=== PATIENT | male | born 1950 | race Caucasian/White ===

== ENCOUNTER → 2016-03-28 | Outpatient (CLI) | payer MEDICARE | LOC: GMAH 10:49 | PROVIDERS: ATTEND Family Medicine | DX: E78.2 Mixed hyperlipidemia (principal); Z12.5 Encounter for screening for malignant neoplasm of prostate | CPT/HCPCS: 84443; 84550; G0103 ==

== ENCOUNTER → 2017-07-16 | Outpatient (CLI) | payer MEDICARE | LOC: GMAH 10:51 | PROVIDERS: ATTEND Family Medicine | DX: E78.2 Mixed hyperlipidemia (principal); Z12.5 Encounter for screening for malignant neoplasm of prostate | CPT/HCPCS: 84443; 84550; G0103 ==

== ENCOUNTER → 2018-07-29 | Outpatient (CLI) | payer MEDICARE | LOC: GMAH 10:29 | PROVIDERS: ATTEND Family Medicine | DX: I10 Essential (primary) hypertension (principal); Z12.5 Encounter for screening for malignant neoplasm of prostate | CPT/HCPCS: 84443; 84550; G0103 ==

== ENCOUNTER 2019-04-24 23:57 | Emergency (ER) | payer MEDICARE ==
[2019-04-25] MEDS ORDERED: ONDANSETRON INJ 4 MG/2 ML VIAL IV ONE ×2 (01:01→03:04)
[2019-04-25] MEDS ORDERED: SODIUM CHLORIDE 0.9% 500ML 500 ML IVS ONE (01:01)
[2019-04-25] MEDS ORDERED: MORPHINE SULFATE INJ 10 MG/ML VIAL IV ONE ×2 (01:01→02:37)
--- NOTE | 2019-04-25 01:08 | ED.PDOC ---
History of Present Illness - General Chief Complaint: Lower Extremity Injury Stated Complaint: leg pain radiating from hip to ankle Time Seen by Provider: 04/25/19 01:01 Source: patient - History of Present Illness Initial Comments: 69 yo male with PMH of HTN, CAD s/p CABG (2017) who presents with cc of LLE pain. Denies any acute injury or trauma. Began suddenly while walking approx 3 hours ago. Reports constant pain throughout the entire left leg from the left hip down to the lower calf, 9/10 severity, unable to describe, "just hurts", took hydrocodone shortly after onset with little relief reported, seems worse with sitting up/bending, better with lying flat, cannot think of any other exacerbants. No hx of similar pain in the past. Denies any leg swelling, redness, weakness, numbness. Has been having some worsening left low back pain recently as well. Denies any urinary sx's. Allergies/Adverse Reactions: Allergies Iodine Allergy (Verified 02/01/15 10:26) Home Medications: Ambulatory Orders Albuterol Inhaler [Ventolin Hfa Inhaler] 1 puff INH DAILY 02/01/15 Albuterol Sulfate Nebs [Proventil Nebs] 2.5 mg INH DAILY 02/01/15 Lisinopril [Zestril] 30 mg PO DAILY 02/01/15 Montelukast [Singulair] 10 mg PO DAILY 02/01/15 Simvastatin [Zocor] 40 mg PO DAILY 02/01/15 Budesonide-Formoterol Fumarate [Symbicort] 1 aer IN BID 09/11/15 Esomeprazole Magnesium [Nexium] 40 mg PO DAILY 09/11/15 Ipratropium [place] (Nasal) [Ipratropium [place]] 0.03 % NA PRN 09/11/15 Gabapentin 300 mg PO Q8H PRN 30 Days #30 cap 04/25/19 Prednisone 60 mg PO DAILY 5 Days #15 tab 04/25/19 Review of Systems - Review of Systems Review of Systems: 04/25/19 01:07 as per HPI All other Systems: Reviewed and Negative Past Medical History (General) - Patient Medical History Hx Seizures: No Hx Stroke: No Hx Dementia: No Hx Asthma: Yes Hx of COPD: Yes Hx Cardiac Disorders: No Hx Congestive Heart Failure: No Hx Pacemaker: No Hx Hypertension: Yes Hx Thyroid Disease: No Hx Diabetes: No Hx Gastroesophageal Reflux: Yes Hx Renal Disease: No Hx Cancer: No Hx of HIV: No Hx Hepatitis C: No Hx MRSA: No Surgical History: coronary bypass surgery - Vaccination History Hx Tetanus, Diphtheria Vaccination: No Hx Influenza Vaccination: Yes Hx Pneumococcal Vaccination: Yes Immunizations Up to Date: Yes - Social History Hx Tobacco Use: No Hx Chewing Tobacco Use: No Hx Alcohol Use: No Hx Substance Use: No Hx Substance Use Treatment: No Hx Depression: No Feels Threatened In Home Enviroment: No Feels Threatened In a Relationship: No Hx Physical Abuse: No Hx Emotional Abuse: No Hx Suspected Abuse: No - Activities of Daily Living Hospice Agency (if applicable):: None - Female History Patient is a Female of Child Bearing Age (10 -59 yrs old): No Patient : No - Triage Comment ED Triage Comment: pain began last night at 2100, while at home Family Medical History - Family History Mother Family History: Unknown Physical Exam - Physical Exam General Appearance: Alert, Restless Eye Exam: bilateral normal Ears, Nose, Throat: hearing grossly normal, normal ENT inspection, normal pharynx Neck: non-tender, full range of motion, supple, normal inspection Respiratory: lungs clear, normal breath sounds, no respiratory distress Cardiovascular/Chest: normal peripheral pulses, regular rate, rhythm, no edema, no gallop, no JVD, no murmur Peripheral Pulses: radial,right: 2+, radial,left: 2+, femoral,right: 2+, femoral,left: 2+, dorsalis pedis,right: 2+, dorsalis pedis,left: 2+, posterior tibialis,right: 2+, posterior tibialis,left: 2+ Gastrointestinal/Abdominal: non tender, soft, no organomegaly Back Exam: normal inspection, no CVA tenderness, no vertebral tenderness, other - moderate left lower paralumbar muscle ttp, slightly +SLR on L side Extremity: normal range of motion, non-tender, normal inspection, no pedal edema, no calf tenderness, normal capillary refill, pelvis stable Neurologic: heel cover splitter II-XII nml as tested, no motor/sensory deficits, alert, normal mood/affect, oriented x 3 Skin Exam: normal color, warm/dry Progress - Progress Progress: 04/25/19 01:08 Acute LLE pain -nontraumatic in nature. Odd presentation. Etiology uncertain. Question sciatica most likely. Consider also peripheral neuropathy, DVT, leg cramps, other. No red flags to suggest Cauda equina syndrome or other emergent etiologies. -pulses, strength, sensation intact throughout. Slightly positive SLR on Left side -obtain XR L hip, L femur, L tib/fib -CBC, CMP, d dimer, UA -morphine 8 mg IV for pain, Zofran 4 mg, NS 04/25/19 03:38 -Labs largely unremarkable, d-dimer negative -XR imaging of Left LE shows no acute processes per my read -CT L-spine reveals evidence of lumbar neural foraminal stenosis, most prominent on left side L3-S3 per radiology. I suspect this may be contributing to his left low back pain and pains in his LLE, which appear most c/w sciatica-type pain. -discussed findings at length with patient as well as likely diagnosis of Left- sided sciatica. His pain is now markedly improved in the ED with another morphine 6 mg IV along with gabapentin 300 mg PO and Decadron. He is able to ambulate independently around the ED with minimal pain. -dc to home in fair condition. Advised close PCP f/u in next 2-5 days. Will send with Rx's of PRN gabapentin, PRN Tylenol #4, and prednisone 60 mg daily x5 days. Return warnings discussed at length. Dayne Dominguez MD Billing #[id number] Laboratory Results - last 24 hr 04/25/19 04/25/19 04/25/19 01:03 01:03 01:03 WBC 10.4 RBC 4.96 Hgb 14.1 Hct 43.2 MCV 87.1 MCH 28.5 MCHC 32.7 L RDW 14.2 Plt Count 257 MPV 9.4 Absolute Neuts (auto) 7.20 H Absolute Lymphs (auto) 2.00 Absolute Monos (auto) 1.10 H Absolute Eos (auto) 0.10 Absolute Basos (auto) 0.10 Neutrophils % 68.9 Lymphocytes % 18.9 L Monocytes % 10.4 H Eosinophils % 1.3 Basophils % 0.5 D-Dimer, Quantitative < 100 L Sodium 140 Potassium 4.0 Chloride 105 Carbon Dioxide 26 Anion Gap 13.0 BUN 20 H Creatinine 0.84 BUN/Creatinine Ratio 23.8 H Random Glucose 115 H Serum Osmolality 282.9 Calcium 9.5 Total Bilirubin 1.1 H AST 28 ALT 23 Alkaline Phosphatase 65 Serum Total Protein 7.7 Albumin 4.5 Globulin 3.2 Albumin/Globulin Ratio 1.4 Urine Color Urine Appearance Urine pH Ur Specific [place] Urine Protein Urine Glucose (UA) Urine Ketones Urine Blood Urine Nitrite Urine Bilirubin Urine Urobilinogen Ur Leukocyte Esterase Urine RBC Urine WBC Ur Epithelial Cells Urine Bacteria 04/25/19 02:25 WBC RBC Hgb Hct MCV MCH MCHC RDW Plt Count MPV Absolute Neuts (auto) Absolute Lymphs (auto) Absolute Monos (auto) Absolute Eos (auto) Absolute Basos (auto) Neutrophils % Lymphocytes % Monocytes % Eosinophils % Basophils % D-Dimer, Quantitative Sodium Potassium Chloride Carbon Dioxide Anion Gap BUN Creatinine BUN/Creatinine Ratio Random Glucose Serum Osmolality Calcium Total Bilirubin AST ALT Alkaline Phosphatase Serum Total Protein Albumin Globulin Albumin/Globulin Ratio Urine Color Yellow Urine Appearance Clear Urine pH 5.0 Ur Specific [place] 1.025 Urine Protein Negative Urine Glucose (UA) Negative Urine Ketones Negative Urine Blood Negative Urine Nitrite Negative Urine Bilirubin Negative Urine Urobilinogen 0.2 Ur Leukocyte Esterase Negative Urine RBC 0 Urine WBC 0 Ur Epithelial Cells 0 Urine Bacteria 0 Departure - Departure Clinical Impression: Sciatica associated with disorder of lumbar spine, Neural foraminal stenosis of lumbosacral spine Time of Disposition: 03:27 Disposition: Discharge to Home or Self Care Condition: Fair Departure Forms: ED Discharge - Pt. Copy, Patient Portal Self Enrollment Instructions: DI for Leg Pain, Sciatica (DC) Diet: resume usual diet Activity: increase activity as tolerated, no lifting Referrals: Alan Atkins MD [Primary Care Provider] - 1-2 Weeks Prescriptions: Gabapentin 300 mg PO Q8H PRN 30 Days #30 cap PRN Reason: Pain Prednisone 60 mg PO DAILY 5 Days #15 tab Home Medications: Ambulatory Orders Albuterol Inhaler [Ventolin Hfa Inhaler] 1 puff INH DAILY 02/01/15 Albuterol Sulfate Nebs [Proventil Nebs] 2.5 mg INH DAILY 02/01/15 Lisinopril [Zestril] 30 mg PO DAILY 02/01/15 Montelukast [Singulair] 10 mg PO DAILY 02/01/15 Simvastatin [Zocor] 40 mg PO DAILY 02/01/15 Budesonide-Formoterol Fumarate [Symbicort] 1 aer IN BID 09/11/15 Esomeprazole Magnesium [Nexium] 40 mg PO DAILY 09/11/15 Ipratropium [place] (Nasal) [Ipratropium [place]] 0.03 % NA PRN 09/11/15 Gabapentin 300 mg PO Q8H PRN 30 Days #30 cap 04/25/19 Prednisone 60 mg PO DAILY 5 Days #15 tab 04/25/19 Additional Instructions: Continue taking medications as directed for pain control at home. Return if symptoms worsen or if pain is poorly controlled at home or if concerning symptoms develop such as weakness, numbness, urinary incontinence or retention, numbness in the groin region, color change or coldness of one leg or foot, etc... Follow up with your primary care doctor in next 2-5 days is recommended. You may benefit from further outpatient testing such as Electromyogram of the left leg, MRI of the L-spine, etc...
--- NOTE | 2019-04-25 02:09 | CT ---
EXAM: CT Lumbar Spine Without Intravenous Contrast CLINICAL HISTORY: The patient is 69 years old and is Male; acute low back pain with sciatica TECHNIQUE: Axial computed tomography images of the lumbar spine without intravenous contrast. Sagittal and coronal reformatted images were created and reviewed. This CT exam was performed using one or more of the following dose reduction techniques: automated exposure control, adjustment of the mA and/or kV according to patient size, and/or use of iterative reconstruction technique. COMPARISON: No relevant prior studies available. FINDINGS: VERTEBRAE: The vertebral body heights and alignment are maintained. DISCS/SPINAL CANAL/NEURAL FORAMINA: Intervertebral disc space narrowing and osteophyte formation at L5-S1 is present. Mild disc bulges are noted of the lumbar spine, most prominent at L4-L5. Neural foraminal narrowing is noted most prominent on the left at multiple levels, specifically L3-S1. SOFT TISSUES: The soft tissues are normal. VASCULATURE: Atherosclerosis of the vasculature is present. IMPRESSION: Spondylosis of the lumbar spine as described. Electronically signed by: Kena Santos MD 04/25/2019 2:08 AM [facility]
--- NOTE | 2019-04-25 02:10 | RAD ---
EXAM: XR Left Femur, 2 Views CLINICAL HISTORY: The patient is 69 years old and is Male; acute nontraumatic LLE pain TECHNIQUE: Frontal and lateral views of the left femur. COMPARISON: No relevant prior studies available. FINDINGS: BONES/JOINTS: Unremarkable. No acute fracture. No dislocation. SOFT TISSUES: Unremarkable. IMPRESSION: Negative left femur radiographs. Electronically signed by: Kena Santos MD 04/25/2019 2:09 AM [facility]
--- NOTE | 2019-04-25 02:10 | RAD ---
EXAM: XR Left Hip With Pelvis When Performed, 2 or 3 Views CLINICAL HISTORY: The patient is 69 years old and is Male; acute nontraumatic LLE pain TECHNIQUE: Two or three views of the left hip with pelvis when performed. COMPARISON: No relevant prior studies available. FINDINGS: BONES/JOINTS: The femoral head is well located. The SI joints and pubic symphysis are intact. No acute fracture. No dislocation. SOFT TISSUES: Unremarkable. IMPRESSION: No acute findings in the left hip. Electronically signed by: Kena Santos MD 04/25/2019 2:09 AM [facility]
--- NOTE | 2019-04-25 02:11 | RAD ---
EXAM: XR Left Tibia and Fibula, 2 Views CLINICAL HISTORY: The patient is 69 years old and is Male; acute nontraumatic LLE pain TECHNIQUE: Frontal and lateral views of the left tibia and fibula. COMPARISON: No relevant prior studies available. FINDINGS: BONES/JOINTS: Evidence of prior ORIF of the a distal fibular fracture with plate and screw fixation is noted. The hardware is engaged. Healed distal tibial fracture is present with associated abundant callus formation. There is no acute fracture. No dislocation. SOFT TISSUES: Unremarkable. No radiopaque foreign body. IMPRESSION: No acute findings in the left tibia and fibula or surrounding soft tissues. Electronically signed by: Kena Santos MD 04/25/2019 2:10 AM [employer]
[2019-04-25] MEDS ORDERED: GABAPENTIN 100 MG CAP PO ONE (02:37)
[2019-04-25] MEDS ORDERED: DEXAMETHASONE INJ 4 MG/ML VIAL IV ONE (02:37)
[2019-04-25] MEDS ORDERED: ONDANSETRON INJ 4 MG/2 ML VIAL ONE (03:03)
[2019-04-25] MEDS ORDERED: ACETAMINOPHEN W/COD #3 TAB (ER Disp) PO ONE (03:33)
[2019-04-25] MEDS ORDERED: ONDANSETRON ODT (ER DISP) 8 MG TAB PO ONE (03:33)
[2019-04-25 04:17] VITALS: BP 150/89; TEMP 97.4; O2SAT 95
== END 2019-04-25 03:50 | disposition home or self-care (01) ==
LOC: ER 23:57
DX: M54.42 Lumbago with sciatica, left side (principal); M48.07 Spinal stenosis, lumbosacral region; I10 Essential (primary) hypertension; I25.10 Atherosclerotic heart disease of native coronary artery without angina pectoris; J44.9 Chronic obstructive pulmonary disease, unspecified; K21.9 Gastro-esophageal reflux disease without esophagitis; Z95.1 Presence of aortocoronary bypass graft; Z79.899 Other long term (current) drug therapy; Z91.041 Radiographic dye allergy status
CPT/HCPCS: 72131; 73502; 73551; 73590; 80053; 81001; 85025; 85379; J1100; J2270; J2405; J7040

== ENCOUNTER → 2019-05-07 | Outpatient (CLI) | payer MEDICARE ==
--- NOTE | 2019-05-08 14:21 | MRI ---
EXAM DESCRIPTION: Lumbar Spine w/o Contrast : Magnetic Resonance Imaging. CLINICAL HISTORY: SCIATICA UNSPEC SIDE COMPARISON: CT scan lumbar spine, hip and left lower extremity radiographs April 25. Acute low back pain and left lower extremity pain on this date. TECHNIQUE: Multiplanar, multiple standard sequences, non contrast MRI, lumbar spine. FINDINGS: L5-S1: The disc is well visualized on axial T2 series 501, image 3. Moderate disc space loss with disc desiccation. Degenerative hypertrophy of the posterior flavum ligaments and facet joints (posterior elements) with a small cyst abutting the inferior right facet joint but not in the spinal canal. Tiny posterior midline bulge. Moderate endplate reactive changes of the midline encroaching on the foramen with borderline stenosis. Abutting the left L5 nerve. Moderate right foraminal narrowing. Trace retrolisthesis. Canal patent. Circumscribed hyperintense T1 and T2 hemangioma in the L5 vertebral body. L4-L5: Disc desiccation with posterior disc space loss. Posterior broad-based bulge 4 mm. Degenerative hypertrophy of the posterior elements more to the left of midline. Disc protrusion below the right posterior margin effacing the right subarticular recess and abutting the descending right L5 nerve. Disc bulge into the bilateral foramina with borderline right foraminal stenosis and left foraminal stenosis from focal disc bulge or protrusion into the foramen. L3-L4: Disc desiccation and minimal disc space loss with minimal anterior bulging. Partial left laminectomy. Thickened tissue extending from the disc space left of midline inferiorly effacing the left subarticular recess and abutting the descending left L4 nerve. Moderate bilateral foraminal narrowing. Mild bilateral degenerative hypertrophy of the posterior elements. L2-L3: Disc desiccation with anterior bulging. Disc space maintained. Small hyperintense T2 annular fissure left paramedian posterior disc margin. No significant disc bulge. Bilateral mild to moderate foraminal narrowing. L1-L2: Minimal disc desiccation with disc space preserved. Posterior elements are unremarkable. Canal and foramina are patent. T12-L1: Normal signal in the disc with disc space preserved. No bulging. Posterior elements unremarkable. Canal and foramina are patent. Conus terminates at this level. No scoliosis. Paravertebral soft tissues unremarkable.. Distal cord normal signal and caliber. Some inhomogeneity of the marrow signal in the remaining vertebral bodies and the posterior elements. Vertebral bodies are not compressed at any level. IMPRESSION: 1. Multiple levels of desiccated and bulging discs. Multiple levels of hypertrophic posterior flavum ligaments and facet joints. Minimal spondylosis. 2. Moderate spondylosis L5-S1 left side endplates with disc spur complex causing left foraminal stenosis and possible impingement of the exiting left L5 nerve. 3. L4-L5 disc protrusion right paracentral encroaching on the right subarticular recess in the descending right L5 nerve. Also bilateral foraminal stenosis. Correlate for bilateral L4 radiculopathy. 4. Prior left paracentral partial laminectomy L3-L4 which could indicate previous discectomy. Apparently disc remnant extruded into the left subarticular recess and possible compromise left L4 nerve. Electronically signed by: Francois Vega MD 05/08/2019 2:19 PM [facility]
== END ==
LOC: MRI 08:00
PROVIDERS: ATTEND Family Medicine
DX: M54.30 Sciatica, unspecified side (principal); M51.36 Other intervertebral disc degeneration, lumbar region; M51.26 Other intervertebral disc displacement, lumbar region; M47.896 Other spondylosis, lumbar region; M51.86 Other intervertebral disc disorders, lumbar region; M47.897 Other spondylosis, lumbosacral region; M48.061 Spinal stenosis, lumbar region without neurogenic claudication; M24.28 Disorder of ligament, vertebrae; M46.96 Unspecified inflammatory spondylopathy, lumbar region; M25.78 Osteophyte, vertebrae; Z98.890 Other specified postprocedural states

== ENCOUNTER → 2019-07-07 | Outpatient (CLI) | payer MEDICARE | LOC: GMA MATASK 16:13 | PROVIDERS: ATTEND Family Medicine | DX: R06.02 Shortness of breath (principal); I10 Essential (primary) hypertension ==

== ENCOUNTER → 2019-11-02 | Outpatient (CLI) | payer MEDICARE | LOC: GMA MATASK 14:10 | PROVIDERS: ATTEND Family Medicine | DX: Z12.5 Encounter for screening for malignant neoplasm of prostate (principal); I10 Essential (primary) hypertension | CPT/HCPCS: 84443; 84550; G0103 ==

== ENCOUNTER 2020-02-03 12:31 | Emergency (ER) | payer MEDICARE ==
[2020-02-03] MEDS ORDERED: LIDOCAINE 1% W/ EPINEPHRINE 20 ML VIAL INJ ONE (12:55)
[2020-02-03 13:02] VITALS: O2SAT 96
--- NOTE | 2020-02-03 13:05 | RAD ---
EXAM DESCRIPTION: Forearm,Left CLINICAL HISTORY: skillsaw injury COMPARISON: None. TECHNIQUE: 2 views left FINDINGS: A soft tissue injury is observed about the wrists. No bone or joint abnormality is detected. No radiopaque foreign body is observed in the soft tissues. IMPRESSION: A soft tissue injury is observed about the wrist. No fracture or foreign body is seen. Electronically signed by: Prateek Girard MD 02/03/2020 1:04 PM [facility]
[2020-02-03] MEDS ORDERED: TETANUS,DIPHTHERIA,PERTUSSIS 1 EA SYG IM ONE (13:26)
[2020-02-03] MEDS ORDERED: SULFA/TRIMETH 800/160 (DS) TAB 1 EA TAB PO ONE (13:26)
[2020-02-03] MEDS ORDERED: SODIUM CHLORIDE 0.9% 1000ML 1,000 ML IVS ONE (13:26)
[2020-02-03] MEDS ORDERED: SODIUM CHLORIDE 0.9% 1000ML 1,000 ML ONE (13:26)
--- NOTE | 2020-02-03 13:37 | ED.PDOC ---
History of Present Illness - General Chief Complaint: Laceration Stated Complaint: laceration left wrist Time Seen by Provider: 02/03/20 12:40 Source: patient Exam Limitations: no limitations - History of Present Illness Initial Comments: The patient is a 69-year-old male who was working outside in his yard when he accidentally cut the left forearm to the lateral dorsal ulnar area. There is a 1-1/4 inch laceration in the area that does extend down almost to the bone. He does not appear to have lost any function. No significant sensation loss in the hand. No strength loss. The cut does not go into the bone. No other injuries. The did occur just prior to arrival. Patient's blood pressure and heart rate are low but he has had syncopal episodes with previous injuries and did take some metoprolol just with correct arrival. He is pleasant and cooperative. Blood loss prior to arrival was probably 20 cc. Timing/Duration: momentarily Severity: moderate Improving Factors: nothing Worsening Factors: nothing Associated Symptoms: denies symptoms Allergies/Adverse Reactions: Allergies Iodine Allergy (Verified 02/03/20 13:02) Home Medications: Ambulatory Orders Albuterol Inhaler [Ventolin Hfa Inhaler] 1 puff INH DAILY 02/01/15 Albuterol Sulfate Nebs [Proventil Nebs] 2.5 mg INH DAILY 02/01/15 Lisinopril [Zestril] 30 mg PO DAILY 02/01/15 Montelukast [Singulair] 10 mg PO DAILY 02/01/15 Budesonide-Formoterol Fumarate [Symbicort] 1 aer IN BID 09/11/15 Esomeprazole Magnesium [Nexium] 40 mg PO DAILY 09/11/15 Amlodipine Besylate [Norvasc] 5 mg PO DAILY 02/03/20 Metoprolol Succinate [Metoprolol Succinate ER] 50 mg PO DAILY 02/03/20 Sulfa/Trimeth 800/160 (Ds) Tab [Bactrim DS Tab] 1 ea PO DAILY #5 tab 02/03/20 Review of Systems - Review of Systems Constitutional: States: malaise EENTM: States: no symptoms reported Respiratory: States: no symptoms reported Cardiology: States: no symptoms reported Gastrointestinal/Abdominal: States: no symptoms reported Genitourinary: States: no symptoms reported Musculoskeletal: States: no symptoms reported Skin: States: no symptoms reported Neurological: States: no symptoms reported Endocrine: States: no symptoms reported All other Systems: No Change from Baseline Past Medical History (General) - Patient Medical History Hx Seizures: No Hx Stroke: No Hx Dementia: No Hx Asthma: Yes Hx of COPD: Yes Hx Cardiac Disorders: No Hx Congestive Heart Failure: No Hx Pacemaker: No Hx Hypertension: Yes Hx Thyroid Disease: No Hx Diabetes: No Hx Gastroesophageal Reflux: Yes Hx Renal Disease: No Hx Cancer: No Hx of HIV: No Hx Hepatitis C: No Hx MRSA: No Surgical History: tonsillectomy - Vaccination History Hx Tetanus, Diphtheria Vaccination: Yes Hx Influenza Vaccination: Yes Hx Pneumococcal Vaccination: Yes - Social History Hx Tobacco Use: No Hx Chewing Tobacco Use: No Hx Alcohol Use: No Hx Substance Use: No Hx Substance Use Treatment: No Hx Depression: No Hx Physical Abuse: No Hx Emotional Abuse: No Hx Suspected Abuse: No - Female History Patient : No Family Medical History - Family History Mother Family History: Unknown Physical Exam - Physical Exam General Appearance: Alert, Comfortable, No apparent distress Eye Exam: bilateral normal Ears, Nose, Throat: hearing grossly normal Neck: full range of motion Respiratory: no respiratory distress, no accessory muscle use Cardiovascular/Chest: normal peripheral pulses, no edema Peripheral Pulses: radial,right: 2+, radial,left: 2+ Gastrointestinal/Abdominal: other - Obese Rectal Exam: deferred Extremity: normal range of motion, no pedal edema, normal capillary refill 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 Comments: Vital Signs - 24 hr 02/03/20 12:53 Temperature 96.3 F L Pulse Rate [ 56 L Right Radial] Respiratory 20 Rate Blood Pressure 118/70 [Right Arm] O2 Sat by Pulse 96 Oximetry Progress - Progress Progress: 02/03/20 13:37 The patient is a 69-year-old male presented emergency room secondary to a skill saw injury to the left distal lateral forearm. It is 1.25 inches in length. After risk and benefits of repair were explained the patient agreed to proceed with repair. 5 cc of lidocaine with epinephrine were used for local anesthetic. The wound was irrigated with 250 cc of sterile saline and then as well with hydrogen peroxide. 5 simple sutures of 4-0 Ethilon were used for reapproximation. Good hemostasis was obtained. Sutures need to come out in about 8 to 10 days. Monitor for any evidence of infection. The patient will be placed on Bactrim once daily for the next 5 days. He did receive a tetanus shot. Additionally the patient was having some mildly low blood pressures and a low heart rate while he was here. This is likely both due to vasovagal component as well as the metoprolol that he took. He was given a liter of IV fluids to improve the blood pressure and reduce the likelihood of a syncopal episode. He does need to follow his blood pressure and heart rate a couple of hours after he takes his metoprolol for the next week or 2 to make sure he is not having recurrent episodes of hypotension and significant bradycardia. No chest pain or shortness of breath. The patient's doing better at this time and will be discharged home for follow-up with his primary care doctor next week. ER warnings are given. [email or web address] [id number] - Results/Orders Results/Orders: X-ray of the forearm showed no evidence of bony pathology. Departure - Departure Clinical Impression: Accidental laceration, Near syncope Disposition: Discharge to Home or Self Care Condition: Fair Departure Forms: ED Discharge - Pt. Copy, Patient Portal Self Enrollment Instructions: DI for Laceration Repair, Laceration Repair With [employer] (DC) Diet: regular diet Activity: increase activity as tolerated Referrals: Alan Atkins MD [Primary Care Provider] - 1-2 Weeks Prescriptions: Sulfa/Trimeth 800/160 (Ds) Tab [Bactrim DS Tab] 1 ea PO DAILY #5 tab Home Medications: Ambulatory Orders Albuterol Inhaler [Ventolin Hfa Inhaler] 1 puff INH DAILY 02/01/15 Albuterol Sulfate Nebs [Proventil Nebs] 2.5 mg INH DAILY 02/01/15 Lisinopril [Zestril] 30 mg PO DAILY 02/01/15 Montelukast [Singulair] 10 mg PO DAILY 02/01/15 Budesonide-Formoterol Fumarate [Symbicort] 1 aer IN BID 09/11/15 Esomeprazole Magnesium [Nexium] 40 mg PO DAILY 09/11/15 Amlodipine Besylate [Norvasc] 5 mg PO DAILY 02/03/20 Metoprolol Succinate [Metoprolol Succinate ER] 50 mg PO DAILY 02/03/20 Sulfa/Trimeth 800/160 (Ds) Tab [Bactrim DS Tab] 1 ea PO DAILY #5 tab 02/03/20 Additional Instructions: The patient is a 69-year-old male presented emergency room secondary to a skill saw injury to the left distal lateral forearm. It is 1.25 inches in length. After risk and benefits of repair were explained the patient agreed to proceed with repair. 5 cc of lidocaine with epinephrine were used for local anesthetic. The wound was irrigated with 250 cc of sterile saline and then as well with hydrogen peroxide. 5 simple sutures of 4-0 Ethilon were used for reapproximation. Good hemostasis was obtained. Sutures need to come out in about 8 to 10 days. Monitor for any evidence of infection. The patient will be placed on Bactrim once daily for the next 5 days. He did receive a tetanus shot. Additionally the patient was having some mildly low blood pressures and a low heart rate while he was here. This is likely both due to vasovagal component as well as the metoprolol that he took. He was given a liter of IV fluids to improve the blood pressure and reduce the likelihood of a syncopal episode. He does need to follow his blood pressure and heart rate a couple of hours after he takes his metoprolol for the next week or 2 to make sure he is not having recurrent episodes of hypotension and significant bradycardia. No chest pain or shortness of breath. The patient's doing better at this time and will be discharged home for follow-up with his primary care doctor next week. ER warnings are given.
[2020-02-03] MEDS ORDERED: NEOMYCIN-BACITRACIN-POLYMYXIN 0.9 GM UD TOP ONE (14:45)
[2020-02-03 16:23] VITALS: BP 139/68; TEMP 97.4
== END 2020-02-03 14:55 | disposition home or self-care (01) ==
LOC: ER 12:31
DX: S51.812A Laceration without foreign body of left forearm, initial encounter (principal); R55 Syncope and collapse; J44.9 Chronic obstructive pulmonary disease, unspecified; I10 Essential (primary) hypertension; K21.9 Gastro-esophageal reflux disease without esophagitis; Z79.899 Other long term (current) drug therapy; Z91.041 Radiographic dye allergy status; W29.3XXA Contact with powered garden and outdoor hand tools and machinery, initial encounter; Y92.007 Garden or yard of unspecified non-institutional (private) residence as the place of occurrence of the external cause
CPT/HCPCS: 73090; 90471; 90715; J7030